=== PATIENT | male | born 1995 | race Caucasian/White ===

== ENCOUNTER 2023-10-03 07:33 | Outpatient (CLI) | payer OTHER | END 2023-10-03 07:37 | disposition home or self-care (01) | LOC: RX STUDY 07:33 | DX: K50.00 Crohn's disease of small intestine without complications (principal) ==

== ENCOUNTER 2025-07-08 08:56 | Outpatient (CLI) | payer OTHER | END 2025-07-08 09:04 | disposition home or self-care (01) | LOC: SONOGRAMA 08:56 | DX: D25.9 Leiomyoma of uterus, unspecified (principal) ==